=== PATIENT | male | born 1965 | race Caucasian/White ===

== ENCOUNTER 2016-12-07 06:46 | Emergency (ER) | payer OTHER ==
[~2016-12-07] VITALS: Wt 66.0 kg
[2016-12-07] MEDS ORDERED: PIPER-TAZO 3.375 GM IV (PMX) 100 ML IVPB STA (08:05)
[2016-12-07] MEDS ORDERED: SODIUM CHLORIDE 0.9% 1L BAG IV* STA (08:05)
[2016-12-07] MEDS ORDERED: CLINDAMYCIN 900 MG/D5W (PMX) 50 ML IVPB STA (08:05)
[2016-12-07] MEDS ORDERED: VANCOMYCIN 1 GM (PMX) 250 ML IVPB STA (08:05)
[2016-12-07 08:37] LABS: CONDITION 1; HEMATOCRIT 36.3 % (42.0-52.0); HEMOGLOBIN 12.7 g/dl (14.0-18.0); LH ANALYZER COMMENTS 1; MEAN CORPUSCULAR HEMOGLOBIN 35.7 pg (29.0-33.0); MEAN CORPUSCULAR HGB CONC 35.1 g/dl (32.0-37.0); MEAN CORPUSCULAR VOLUME 101.7 fl (82.0-101.0); MEAN PLATELET VOLUME 8.1 fl (7.4-10.4); PLATELET COUNT 236 10^3/UL (140-440); RED BLOOD COUNT 3.57 10^6/ul (4.70-6.10); RED CELL DISTRIBUTION WIDTH 14.2 % (11.5-14.5); SUSPECT 1; UNCORRECTED WBC 18.9 10^3/ul (4.8-10.8); WHITE BLOOD COUNT 18.9 10^3/ul (4.8-10.8)
[2016-12-07 08:42] LABS: INR 0.84; PROTIME 11.5 Sec (12.2-14.2); PT RATIO 0.9
[2016-12-07 08:43] LABS: PARTIAL THROMBOPLASTIN TIME 31.2 Sec (25.0-35.0)
[2016-12-07 08:46] LABS: ALBUMIN 3.2 g/dl (3.3-4.9); CHLORIDE 94 mmol/L (97-110); SODIUM 131 mmol/L (135-144)
[2016-12-07 08:47] LABS: POTASSIUM 3.8 mmol/L (3.5-5.1)
[2016-12-07 08:49] LABS: ALANINE AMINOTRANSFERASE 32 IU/L (13-69); ALBUMIN/GLOBULIN RATIO 0.91; ALKALINE PHOSPHATASE 113 IU/L (42-121); ANION GAP 18 (8-16); ASPARTATE AMINO TRANSFERASE 48 IU/L (15-46); BILIRUBIN,INDIRECT 0.3 mg/dl (0-1.1); BILIRUBIN,TOTAL 0.3 mg/dl (0.2-1.3); BLOOD UREA NITROGEN 14 mg/dl (7-20); CARBON DIOXIDE 23 mmol/L (21-31); CREATININE 0.61 mg/dl (0.61-1.24); TOTAL PROTEIN 6.7 g/dl (6.1-8.1)
[2016-12-07 08:50] LABS: CALCIUM 9.2 mg/dl (8.4-10.2); GLUCOSE 103 mg/dl (70-220)
[2016-12-07 09:10] LABS: TROPONIN-I < 0.010 ng/ml (0.00-0.12)
[2016-12-07 09:26] LABS: BASOPHIL # 0.4 10^3/ul (0.0-0.1); LYMPHOCYTES # 1.3 10^3/ul (0.8-2.9); MONOCYTE # 1.9 10^3/ul (0.3-0.9); MYELOCYTES # 0.2; NEUTROPHIL # 12.3 10^3/ul (1.6-7.5)
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
--- NOTE | 2016-12-07 09:40 | RADRPT ---
PROCEDURE: Chest x-ray CLINICAL INDICATION: Pain. TECHNIQUE: One-view frontal. COMPARISON: None available FINDINGS: The cardiac silhouette is normal. Right lower lobe infiltrate is identified. Left lung is clear. No pneumothorax is noted. No hilar abnormalities are noted. IMPRESSION: 1. Increased markings at the right base consistent with an infiltrate. RPTAT: HH .Toni Estevez MD, MD Date Time Electronically viewed and signed by .Toni Etsevez MD, on 12/07/2016 09:39 .G/
--- NOTE | 2016-12-07 09:41 | RADRPT ---
PROCEDURE: Right hand series CLINICAL INDICATION: Pain. TECHNIQUE: 3 views. COMPARISON: None FINDINGS: No acute fractures are noted. Joint spaces are well maintained. No erosions are noted. There is normal bone mineralization. Soft tissue swelling is noted. This particularly prominent in the right third digit. IMPRESSION: 1. No bony abnormalities are identified. 2. Soft tissue swelling. RPTAT: [facility] .Toni Estevez MD, MD Date Time Electronically viewed and signed by .Toni Estevez MD, on 12/07/2016 09:40 .G/
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
[2016-12-07 12:00] LABS: ADD UMIC YES; URINE BILIRUBIN (Dip) NEGATIVE (NEGATIVE); URINE BLOOD (Dip) 1+ (NEGATIVE); URINE COLOR LT. YELLOW (YELLOW); URINE GLUCOSE (Dip) NEGATIVE (NEGATIVE); URINE KETONES (Dip) 15 (NEGATIVE); URINE LEUKOCYTE ESTERASE (Dip) NEGATIVE (NEGATIVE); URINE NITRITE (Dip) NEGATIVE (NEGATIVE); URINE TOTAL PROTEIN (Dip) NEGATIVE (NEGATIVE); URINE UROBILINOGEN (Dip) 0.2 E.U./dL (0.1-1.0)
[2016-12-07 12:21] LABS: BACTERIA,URINE FEW; URINE RBCS 0-2 /HPF (0)
[2016-12-07 12:27] LABS: BENZODIAZEPINES Negative (NEGATIVE)
[2016-12-07 12:32] LABS: BARBITURATES Negative (NEGATIVE); CANNABINOIDS Positive (NEGATIVE); COCAINE Negative (NEGATIVE); OPIATES Positive (NEGATIVE)
[2016-12-07 14:30] VITALS: BP 139/103; PULSE 98; RESP 22; TEMP 98.7
--- NOTE | 2016-12-07 16:42 | EN ---
Date/Time of Note Date/Time of Note DATE: 12/07/16 TIME: 16:41 ER Progress Note This 51-year-old male was signed out to me by her previous physician. This patient does have what appears to be flexor tenosynovitis. At this time we are still unable to secure a room for him at a different facility. This patient is here with a family friend who states that they would like to leave AGAINST MEDICAL ADVICE and drive over to [facility]. The patient knows the risks versus benefits of leaving AGAINST MEDICAL ADVICE. I advised him that he needs to go to the hospital, and advised that if he were to avoid any care he has a risk of losing his hand, and possible from infection. Patient verbalized understanding. Patient will be signed out AGAINST MEDICAL ADVICE at this time RADHA LOPEZ DO Dec 07, 2016 16:42
== END 2016-12-07 17:41 | disposition left against medical advice (07) ==
LOC: E/R 06:46
DX: A41.9 Sepsis, unspecified organism (principal); L03.113 Cellulitis of right upper limb; M65.841 Other synovitis and tenosynovitis, right hand; D72.829 Elevated white blood cell count, unspecified; F17.210 Nicotine dependence, cigarettes, uncomplicated; I10 Essential (primary) hypertension
CPT/HCPCS: 36415; 71010; 73130; 73200; 80053; 80307; 81001; 83605; 84484; 85025; 85610; 85730; 86703; 87040; 87086; 93005; 96374; 96375; J2543; J3370; J7030; Z7502; Z7610; 81003